=== PATIENT | female | born 1955 ===

== ENCOUNTER → 2017-04-13 | Outpatient (CLI) | payer OTHER | END | disposition home or self-care (01) | LOC: LAB 15:37 | DX: E56.1 Deficiency of vitamin K (principal) ==

== ENCOUNTER 2018-07-19 09:22 | Outpatient (CLI) | payer OTHER ==
[2018-07-19] MEDS ORDERED: FEMARA2.5 MG PO (15:03)
[2018-07-20] MEDS ORDERED: EVISTA60 MG PO (08:51)
[2018-07-20] MEDS ORDERED: GABAPENTIN600 MG PO (08:51)
[2018-07-20] MEDS ORDERED: ZANAFLEX4 M1 PO (08:51)
[2018-07-20] MEDS ORDERED: OMEPRAZOLE20 MG PO (08:52)
[2018-07-20] MEDS ORDERED: CELEBREX200MG PO (08:52)
[2018-07-20] MEDS ORDERED: ZANTAC300 MG PO (08:53)
[2018-07-20] MEDS ORDERED: LETROZOLE2.5 MG PO (08:53)
[2018-07-20] MEDS ORDERED: [UNRECOGNIZED DRUG - OTHER] PO (08:54)
[2018-07-20] MEDS ORDERED: FOLGARD TABLET1 EACH PO (08:54)
== END 2018-07-19 09:35 | disposition home or self-care (01) ==
LOC: EKG 09:22
DX: I49.8 Other specified cardiac arrhythmias (principal); Z76.89 Persons encountering health services in other specified circumstances

== ENCOUNTER 2018-07-24 07:50 | Inpatient (IN) | payer OTHER ==
[~2018-07-24] VITALS: Ht 154.9 cm; Wt 84.4 kg
[~2018-07-24 07:50] MED LIST: CELEBREX200MG PO; EVISTA60 MG PO; FEMARA2.5 MG PO; FOLGARD TABLET1 EACH PO; GABAPENTIN600 MG PO; LETROZOLE2.5 MG PO; OMEPRAZOLE20 MG PO; ZANAFLEX4 M1 PO; ZANTAC300 MG PO; [UNRECOGNIZED DRUG - OTHER] PO
[2018-07-25] MEDS ORDERED: TYLENOL ARTHRI650 MG PO (10:38)
== END 2018-07-28 16:02 | disposition designated cancer center or children's hospital (05) | DRG 470 ==
LOC: SURH 07:50 → SURG 07-25 05:50 → O/R 07-25 05:50 → SURG 07-25 13:15 → SURH 07-25 13:45 → SURG 07-28 16:02
PROVIDERS: ADMIT Orthopaedic Surgery
PROC: 0SRC0J9 Replacement of Right Knee Joint with Synthetic Substitute, Cemented, Open Approach (ICD-10-PCS; principal; 2018-07-25 13:45)
DX: M17.11 Unilateral primary osteoarthritis, right knee (principal); D62 Acute posthemorrhagic anemia; K21.9 Gastro-esophageal reflux disease without esophagitis

== ENCOUNTER → 2018-11-21 | Outpatient (CLI) | payer OTHER ==
[~2018-11-21] MED LIST changes: +TYLENOL ARTHRI650 MG PO
== END | disposition home or self-care (01) ==
LOC: RAD 11:08
DX: M25.561 Pain in right knee (principal)

== ENCOUNTER 2020-05-28 09:54 | Outpatient (CLI) | payer OTHER | END 2020-05-28 10:17 | disposition home or self-care (01) | LOC: RAD 09:54 | PROVIDERS: ATTEND Orthopaedic Surgery | DX: M25.561 Pain in right knee (principal); M25.562 Pain in left knee ==

== ENCOUNTER → 2020-06-30 08:20 | Outpatient (CLI) | payer OTHER ==
[~2020-06-30 08:20] MED LIST changes: +EYE ITCH RELIEF5 ML; +IBANDRONATE SO150 MG; +MAGNESIUM OXID250 MG; +MOMETASONE FURO15 G2; +PANTOPRAZOLE SO40 MG; +PEPCID AC20 MG PO; +RESTASIS1 EACH; +TRIAMCINOLONE A15 G1; +VITAMIN D350 MC3; +VITAMIN E400 UNI2; +XARELTO10 M1
== END | disposition home or self-care (01) ==
LOC: LAB 08:20
PROVIDERS: ATTEND Orthopaedic Surgery
DX: D64.9 Anemia, unspecified (principal); E88.9 Metabolic disorder, unspecified; D68.8 Other specified coagulation defects; N39.0 Urinary tract infection, site not specified; Z22.322 Carrier or suspected carrier of Methicillin resistant Staphylococcus aureus

== ENCOUNTER 2020-07-08 08:30 | Inpatient (IN) | payer OTHER ==
[~2020-07-08] VITALS: Ht 154.9 cm; Wt 87.1 kg
[~2020-07-08 08:30] MED LIST changes: -EYE ITCH RELIEF5 ML; -IBANDRONATE SO150 MG; -MAGNESIUM OXID250 MG; -MOMETASONE FURO15 G2; -PANTOPRAZOLE SO40 MG; -PEPCID AC20 MG PO; -RESTASIS1 EACH; -TRIAMCINOLONE A15 G1; -VITAMIN D350 MC3; -VITAMIN E400 UNI2; -XARELTO10 M1
[2020-07-10] MEDS ORDERED: PEPCID AC20 MG PO (09:41)
[2020-07-15] MEDS ORDERED: VITAMIN D350 MC3 (07:56)
[2020-07-15] MEDS ORDERED: MAGNESIUM OXID250 MG (07:56)
[2020-07-15] MEDS ORDERED: XARELTO10 M1 (07:56)
[2020-07-15] MEDS ORDERED: PANTOPRAZOLE SO40 MG (07:57)
[2020-07-15] MEDS ORDERED: MOMETASONE FURO15 G2 (07:57)
[2020-07-15] MEDS ORDERED: TRIAMCINOLONE A15 G1 (07:57)
[2020-07-15] MEDS ORDERED: IBANDRONATE SO150 MG (07:57)
[2020-07-15] MEDS ORDERED: VITAMIN E400 UNI2 (07:57)
[2020-07-15] MEDS ORDERED: EYE ITCH RELIEF5 ML (07:58)
[2020-07-15] MEDS ORDERED: RESTASIS1 EACH (07:58)
== END 2020-07-18 14:48 | DRG 470 ==
LOC: SURG 07-15 05:25 → O/R 07-15 05:25 → SURH 07-15 07:00 → SURG 07-15 14:10
PROVIDERS: ADMIT Orthopaedic Surgery; ATTEND Orthopaedic Surgery
PROC: 0SRD0J9 Replacement of Left Knee Joint with Synthetic Substitute, Cemented, Open Approach (ICD-10-PCS; principal; 2020-07-15 07:00)
DX: M17.12 Unilateral primary osteoarthritis, left knee (principal)

== ENCOUNTER 2021-06-08 09:49 | Outpatient (CLI) | payer OTHER ==
[~2021-06-08 09:49] MED LIST changes: +EYE ITCH RELIEF5 ML; +IBANDRONATE SO150 MG; +MAGNESIUM OXID250 MG; +MOMETASONE FURO15 G2; +PANTOPRAZOLE SO40 MG; +PEPCID AC20 MG PO; +RESTASIS1 EACH; +TRIAMCINOLONE A15 G1; +VITAMIN D350 MC3; +VITAMIN E400 UNI2; +XARELTO10 M1
== END 2021-06-08 10:04 | disposition home or self-care (01) ==
LOC: LAB 09:49
PROVIDERS: ATTEND Orthopaedic Surgery
DX: E55.9 Vitamin D deficiency, unspecified (principal); M85.9 Disorder of bone density and structure, unspecified; E56.1 Deficiency of vitamin K

== ENCOUNTER 2023-12-08 14:31 | Outpatient (CLI) | payer OTHER | END 2023-12-08 15:08 | disposition home or self-care (01) | LOC: RAD 14:31 | PROVIDERS: ATTEND Orthopaedic Surgery | DX: M25.551 Pain in right hip (principal); M25.552 Pain in left hip; M25.561 Pain in right knee; M25.562 Pain in left knee ==

== ENCOUNTER → 2023-12-19 08:32 | Outpatient (CLI) | payer OTHER ==
[2023-12-19 09:25] LABS: PH,URINE 6.5 (5.0-8.0); URINE APPEARANCE Clear; URINE BILIRRUBIN Negative (NEGATIVE); URINE BLOOD Negative; URINE COLOR Yellow; URINE GLUCOSE Negative (NEGATIVE); URINE KETONE Negative (NEGATIVE); URINE LEUKOCYTE Negative; URINE NITRATE Negative; URINE PROTEIN Negative (NEGATIVE); URINE UROBILINOGEN 0.2 E.U./dl
[2023-12-19 09:26] LABS: URINE RBC 5.6 uL (0.0-20.8); URINE WBC 2.4 uL (0.0-23.2)
[2023-12-19 09:27] LABS: MEAN CELL VOLUME 85.2 fL (80.00-100.00); MEAN CORPUSCULAR HEMOGLOBIN 28.4 pg (27.00-32.0); MEAN CORPUSCULAR HGB CONC 33.4 g/dl (32.0-36.0); PLATELET COUNT 214 K/uL (150-450); RED BLOOD COUNT 4.57 M/uL (4.00-6.00); RED CELL DISTRIBUTION WIDTH 15.4 % (11.5-14.5)
[2023-12-19 09:30] LABS: URINE BACTERIA 2.5 uL (0.0-1933)
[2023-12-19 10:36] LABS: ALKALINE PHOSPHATASE 97 U/L (50-136); ALT/SGPT 24 U/L (12-78); AMYLASE 45 U/L (25-115); ANION GAP 5 (10.0-20.0); AST/SGOT 19 U/L (15-37); BILIRUBIN TOTAL 0.49 mg/dL (0.3-1.2); BILIRUBIN,CONJUGATED 0.11 mg/dL (0.0-0.2); BILIRUBIN,UNCONJUGATED 0.38 mg/dL (0.0-0.6); BLOOD UREA NITROGEN 16 mg/dL (7-18); BUN CREA RATIO 24 (7.0-25.0); CALCIUM 9.3 mg/dL (8.5-10.1); CARBON DIOXIDE 32 mEq/L (21-32); CHLORIDE 108 mmol/L (98-107); CHOL HDL RATIO 2.7 (0-5.0); CHOLESTEROL 248 mg/dL (0-200); CREATININE SERUM 0.66 mg/dL (0.55-1.02); GLOBULINA 3.5 G/DL (2.4-3.5); GLUCOSE FASTING 90 mg/dL (65-100); HDL 92 mg/dl (40-60); LDL 139 mg/dl (0-130); LIPASE 30 U/L (13-75); OSMOLALITY SERUM 282 MOSM/KG (275-295); POTASSIUM 4.27 mEq/L (3.5-5.1); SODIUM 141 mmol/L (136-145); T4 TOTAL 11.03 UG/DL (4.8-13.9); TOTAL PROTEIN 7.5 gm/dL (6.4-8.2); TRIGLYCERIDES 87 mg/dL (0-150); TSH 0.373 uIU/mL (0.358-3.74); VLDL 17 (0-39)
[2023-12-19 10:37] LABS: C-REACTIVE PROTEIN < 0.29 MG/DL (0.00-0.29)
[2023-12-19 10:59] LABS: T3 TOTAL 1.07 ng/ml (0.846-2.02); VITAMIN D3 25 HYDROXY 34.86 ng/ml (30-120)
[2023-12-19 17:17] LABS: URIC ACID 3.8 mg/dL (2.5-7.5)
[2023-12-21 12:09] LABS: ANTI THYROID PEROXIDASE 37 IU/mL (0-34); ESTRADIOL SERUM < 5.0 pg/mL (0.0-54.7); FOLLICLE STIMULATING HORMONE 57.9 mIU/mL (25.8-134.8); HOMOCYSTEINE 10.2 umol/L (0.0-17.2); INSULIN LEVELS 6.2 uIU/mL (2.6-24.9); PROGESTERONA < 0.1 ng/mL (.); TESTOSTERONE,TOTAL < 3.00 ng/dL (3-67); anti thy < 1.0 IU/mL (0.0-0.9); tpo 44 IU/mL (0-34)
[2023-12-22 09:11] LABS: VITAMIN K 0.45 ng/mL (0.10-2.20)
== END | disposition home or self-care (01) ==
LOC: LAB 08:32
PROVIDERS: ATTEND General Practice
DX: E07.9 Disorder of thyroid, unspecified (principal); E34.9 Endocrine disorder, unspecified; E55.9 Vitamin D deficiency, unspecified; E53.9 Vitamin B deficiency, unspecified; E11.9 Type 2 diabetes mellitus without complications; I10 Essential (primary) hypertension; N30.00 Acute cystitis without hematuria; E78.5 Hyperlipidemia, unspecified; K85.80 Other acute pancreatitis without necrosis or infection; B35.1 Tinea unguium; B16.9 Acute hepatitis B without delta-agent and without hepatic coma; E56.1 Deficiency of vitamin K; D64.9 Anemia, unspecified; E11.65 Type 2 diabetes mellitus with hyperglycemia; E03.9 Hypothyroidism, unspecified